=== PATIENT | female | born 1985 | race American Indian/Alaskan Native ===

== ENCOUNTER 2021-01-09 01:04 | Emergency (ER) | payer OTHER ==
[2021-01-09 01:21] VITALS: BP 111/69
[2021-01-09] MEDS ORDERED: diazePAM 5 MG TAB PO ONE (01:25)
[2021-01-09] MEDS ORDERED: ACETAMINOPHEN 500 MG TAB PO ONE (01:25)
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
== END 2021-01-09 04:07 | disposition home or self-care (01) ==
LOC: ED 01:04
DX: M62.838 Other muscle spasm (principal); M62.830 Muscle spasm of back; J45.909 Unspecified asthma, uncomplicated; Z79.899 Other long term (current) drug therapy; Z88.6 Allergy status to analgesic agent; Z98.890 Other specified postprocedural states; Z88.2 Allergy status to sulfonamides; V49.59XA Passenger injured in collision with other motor vehicles in traffic accident, initial encounter; Y92.410 Unspecified street and highway as the place of occurrence of the external cause; Y93.89 Activity, other specified; Y99.8 Other external cause status
CPT/HCPCS: 70450; 72125; 72128; 99283

== ENCOUNTER 2022-03-26 13:10 | Emergency (ER) | payer OTHER ==
[2022-03-26] MEDS ORDERED: ONDANSETRON 4 MG ODT TAB PO ONE (18:47)
[2022-03-26] MEDS ORDERED: MORPHINE 4 MG/1 ML INJ IM ONE (18:49)
[2022-03-26 19:45] LABS: Alanine Aminotransferase 17 units/L (7-56); Albumin 3.8 g/dL (3.9-5); Blood Urea Nitrogen 10 mg/dL (7-17); Calcium 8.9 mg/dL (8.4-10.2); Hemolysis Index 12
[2022-03-26 19:46] LABS: BUN/Creatinine Ratio 17
[2022-03-26 19:49] LABS: Hematocrit 40.5 % (30.3-42.9); Hemoglobin 13.7 gm/dl (10.1-14.3); Mean Corpuscular HGB Conc 34 % (30-34); Mean Corpuscular Volume 96 fl (79-97); Platelet Count 236 K/mm3 (140-440); Red Blood Count 4.21 M/mm3 (3.65-5.03); Red Cell Distribution Width 13.3 % (13.2-15.2)
--- NOTE | 2022-03-26 20:52 | Cat Scan Report ---
CT abdomen pelvis wo con INDICATION: RLQ pain. COMPARISON: None TECHNIQUE: Abdominal and pelvic CT exam performed. All CT scans at this location are performed using CT dose reduction for ALARA by means of automated exposure control. FINDINGS: CT ABDOMEN and PELVIS: Lung Bases: No significant abnormality. Liver: No significant abnormality. Biliary: No significant abnormality. Spleen: No significant abnormality. Pancreas: No significant abnormality. Adrenals: No significant abnormality. Kidneys: Left midpole simple cyst. No significant abnormality. Lymphatics: No lymphadenopathy. Vasculature: No significant abnormality. Bowel: No significant abnormality. Normal appendix. Pelvis: Small quantity of free fluid seen in the pelvis. Osseous Structures: No aggressive osseous lesion. Additional Findings: None IMPRESSION: 1. Small quantity of free fluid seen in the pelvis, could be related to ruptures cyst. No other signi ficant abnormality of the abdomen or pelvis. Signer Name: Warren Mayes MD Signed: 03/26/2022 8:47 PM Workstation Name: [id number]
[2022-03-26 20:54] VITALS: BP 113/68
[2022-03-26 21:02] LABS: Bilirubin,Urine NEG (Negative); Blood,Urine LG (Negative); Color,Urine Yellow (Yellow); Urobilinogen,Urine < 2.0 mg/dL (<2.0)
[2022-03-26 21:14] LABS: Bacteria,Urine 1+ /HPF (Negative); Mucus,Urine FEW /HPF
[2022-03-26 21:30] LABS: WBC,Urine < 1.0 /HPF (0.0-6.0)
[2022-03-26] MEDS ORDERED: cephALEXin 500 MG CAP PO ONE (21:33)
[2022-03-26] MEDS ORDERED: KETOROLAC 10 MG TAB PO ONE (21:33)
--- NOTE | 2022-03-26 21:35 | Emergency Department Report ---
ED Abdominal Pain HPI - General Chief Complaint: Abdominal Pain Stated Complaint: RT SIDE PAIN Time Seen by Provider: 03/26/22 18:13 Source: patient Mode of arrival: Ambulatory Limitations: No Limitations - History of Present Illness Initial Comments: 37 yo black female with pmh of asthma presents to ed for evaluation right flank pain that started at 0100 this am. She states that pain radiates down to her RLQ and right pelvic area, is associated with a fever, and is 10/10. She denies n/v/d, dysuria, and vaginal discharge. MD Complaint: abdominal pain, flank pain -: Sudden, This morning Location: R flank Radiation: RLQ Migration to: no migration Severity scale (0 -10): 10 Quality: aching Consistency: constant Worsens With: other (ambulation) Associated Symptoms: fever. denies: nausea, vomiting, diarrhea, chills, dysuria, hematemesis, hematochezia, melena, hematuria, anorexia, syncope - Related Data LMP Date: 03/26/22 Previous Rx's Medication Instructions Recorded Last Taken Type Fluconazole (Nf) [Diflucan TAB] 150 mg PO ONCE #1 tablet 04/17/20 Unknown Rx cephALEXin [Keflex] 500 mg PO Q8HR #21 cap 04/17/20 Unknown Rx Amoxicillin/Potassium Clav 1 each PO Q12H #20 tablet 01/09/21 Unknown Rx [Augmentin 875-125 Tablet] Baclofen 20 mg PO Q12H PRN #20 tablet 01/09/21 Unknown Rx Ibuprofen [Motrin] 600 mg PO Q8H PRN #30 tablet 01/09/21 Unknown Rx Fluconazole [Diflucan TAB] 200 mg PO ONCE #1 tablet 03/26/22 Unknown Rx Ketorolac [Toradol] 10 mg PO Q6H PRN #12 tab 03/26/22 Unknown Rx cephALEXin [Keflex] 500 mg PO BID 7 Days #14 cap 03/26/22 Unknown Rx Allergies Allergy/AdvReac Type Severity Reaction Status Date / Time codeine Allergy Anaphylaxis Verified 04/17/20 12:16 Sulfa (Sulfonamide Allergy Anaphylaxis Verified 04/17/20 12:16 Antibiotics) ED Review of Systems ROS: Stated complaint: RT SIDE PAIN Other details as noted in HPI Comment: All other systems reviewed and negative Constitutional: fever. denies: chills, malaise, weakness ENT: denies: congestion Respiratory: denies: shortness of breath, SOB with exertion, SOB at rest, stridor, wheezing Cardiovascular: denies: chest pain, palpitations, dyspnea on exertion, orthopnea, edema, syncope, paroxysmal nocturnal dyspnea Gastrointestinal: abdominal pain. denies: nausea, vomiting, diarrhea, hematemesis, melena, hematochezia Genitourinary: denies: urgency, dysuria, frequency, hematuria, discharge Musculoskeletal: back pain Skin: denies: rash, lesions Neurological: denies: headache, weakness ED Past Medical Hx - Past Medical History Hx Asthma: Yes Additional medical history: ovarian cyst, reproductive organ complication - Surgical History Additional Surgical History: CORNEAL IMPLANT - Social History Smoking Status: Never Smoker Substance Use Type: None - Medications Home Medications: Home Medications Medication Instructions Recorded Confirmed Last Taken Type Fluconazole (Nf) [Diflucan TAB] 150 mg PO ONCE #1 tablet 04/17/20 Unknown Rx cephALEXin [Keflex] 500 mg PO Q8HR #21 cap 04/17/20 Unknown Rx Amoxicillin/Potassium Clav 1 each PO Q12H #20 tablet 01/09/21 Unknown Rx [Augmentin 875-125 Tablet] Baclofen 20 mg PO Q12H PRN #20 tablet 01/09/21 Unknown Rx Ibuprofen [Motrin] 600 mg PO Q8H PRN #30 tablet 01/09/21 Unknown Rx Fluconazole [Diflucan TAB] 200 mg PO ONCE #1 tablet 03/26/22 Unknown Rx Ketorolac [Toradol] 10 mg PO Q6H PRN #12 tab 03/26/22 Unknown Rx cephALEXin [Keflex] 500 mg PO BID 7 Days #14 cap 03/26/22 Unknown Rx ED Physical Exam - General Limitations: No Limitations General appearance: alert, in no apparent distress - Head Head exam: Present: atraumatic, normocephalic - Eye Eye exam: Present: normal appearance. Absent: conjunctival injection - Neck Neck exam: Present: normal inspection, full ROM. Absent: tenderness, lymphadenopathy - Respiratory Respiratory exam: Present: normal lung sounds bilaterally. Absent: respiratory distress, wheezes, rales, rhonchi, stridor, chest wall tenderness - Cardiovascular Cardiovascular Exam: Present: regular rate, normal heart sounds - GI/Abdominal GI/Abdominal exam: Present: soft, tenderness (RLQ), normal bowel sounds. Absent: distended, guarding, rebound, rigid - Extremities Exam Extremities exam: Present: normal inspection, normal capillary refill. Absent: pedal edema, joint swelling, calf tenderness - Back Exam Back exam: Present: normal inspection, full ROM, CVA tenderness (R). Absent: CVA tenderness (L), vertebral tenderness - Neurological Exam Neurological exam: Present: alert, oriented X3, normal gait - Psychiatric Psychiatric exam: Present: normal affect, normal mood - Skin Skin exam: Present: warm, dry, intact, normal color ED Course Vital Signs 03/26/22 03/26/22 13:47 20:52 Temperature 99.2 F 99.3 F Pulse Rate 92 H 76 Respiratory 16 16 Rate Blood Pressure 126/81 Blood Pressure 113/68 [Left] O2 Sat by Pulse 99 99 Oximetry ED Medical Decision Making - Lab Data Result diagrams: 03/26/22 19:02 03/26/22 19:02 - Radiology Data Radiology results: report reviewed, image reviewed CT abdomen and pelvis without contrast: FINDINGS: CT ABDOMEN and PELVIS: Lung Bases: No significant abnormality. Liver: No significant abnormality. Biliary: No significant abnormality. Spleen: No significant abnormality. Pancreas: No significant abnormality. Adrenals: No significant abnormality. Kidneys: Left midpole simple cyst. No significant abnormality. Lymphatics: No lymphadenopathy. Vasculature: No significant abnormality. Bowel: No significant abnormality. Normal appendix. Pelvis: Small quantity of free fluid seen in the pelvis. Osseous Structures: No aggressive osseous lesion. Additional Findings: None IMPRESSION: 1. Small quantity of free fluid seen in the pelvis, could be related to ruptures cyst. No other significant abnormality of the abdomen or pelvis. - Medical Decision Making 37 yo black female with pmh of asthma presents to ed for evaluation right flank pain that started at 0100 this am. She states that pain radiates down to her RLQ and right pelvic area, is associated with a fever, and is 10/10. She denies n/v/d, dysuria, and vaginal discharge. Noted to have right CVA tenderness on exam along with nitrates in UA. CMP, CBC, lipase, and CT abdomen and pelvis unremarkable. Patient will be treated for complicated UTI with one shot of Rocephin 1g IM and keflex 500 mg po BID for 7 days at home along with Toradol to use prn for pain. She is advised to take medications as prescribed and follow up with pcp if no improvement or worsening symptoms. She is advised to return to ed as needed. She verbalizes understanding of and agreement with plan of care. Critical care attestation.: If time is entered above; I have spent that time in minutes in the direct care of this critically ill patient, excluding procedure time. ED Disposition Clinical Impression: Right flank pain UTI (urinary tract infection) Qualifiers: Urinary tract infection type: acute cystitis Hematuria presence: without hematuria Qualified Code(s): N30.00 - Acute cystitis without hematuria Disposition: HOME / SELF CARE / HOMELESS Is pt being admited?: No Does the pt Need Aspirin: No Condition: Stable Instructions: Urinary Tract Infection, Adult, [id number], Abdominal Pain, Adult, [id number]-[id number], Flank Pain, Adult, [id number], Abdominal Pain (ED) Additional Instructions: Take medications as prescribed. Follow-up with primary care provider if no improvement or worsening symptoms. Return to the emergency department as needed. Prescriptions: Fluconazole [Diflucan TAB] 200 mg PO ONCE #1 tablet cephALEXin [Keflex] 500 mg PO BID 7 Days #14 cap Ketorolac [Toradol] 10 mg PO Q6H PRN #12 tab PRN Reason: Pain Referrals: WILLIE BARBER MD [Staff Physician] - 3-5 Days NORMAN LINCOLN MD [Staff Physician] - 3-5 Days Forms: Work/School Release Form(ED) Time of Disposition: 21:34
[2022-03-26] MEDS ORDERED: LIDOCAINE-MPF (1%) 10 MG/1 ML VIAL 5 ML INFILTRATI ONE (21:37)
== END 2022-03-26 22:54 | disposition home or self-care (01) ==
LOC: ED 13:10
DX: N39.0 Urinary tract infection, site not specified (principal); R10.31 Right lower quadrant pain; J45.909 Unspecified asthma, uncomplicated; Z88.5 Allergy status to narcotic agent; Z88.2 Allergy status to sulfonamides; Z79.899 Other long term (current) drug therapy
CPT/HCPCS: 36415; 74176; 80053; 81001; 83690; 84702; 85027; 96372; 99284; J0696; J2270; J3490; Q0162